=== PATIENT | male | born 1985 | race Caucasian/White ===

== ENCOUNTER 2017-11-06 21:48 | Emergency (ER) | payer MEDICAID ==
[~2017-11-06] VITALS: Ht 167.6 cm; Wt 70.3 kg
[2017-11-06 22:00] VITALS: Ht 167.6 cm; Wt 70.3 kg
[2017-11-06 22:33] VITALS: BP 120/71
== END 2017-11-06 22:34 | disposition home or self-care (01) ==
LOC: ED 21:48
DX: H73.012 Bullous myringitis, left ear (principal)

== ENCOUNTER 2019-08-22 17:59 | Emergency (ER) | payer MEDICAID ==
[~2019-08-22] VITALS: Ht 167.6 cm; Wt 67.6 kg
[2019-08-22 19:25] VITALS: Ht 167.6 cm; Wt 67.6 kg
[2019-08-22 21:16] VITALS: BP 123/69
== END 2019-08-22 21:16 | disposition home or self-care (01) ==
LOC: ED 17:59
DX: M54.41 Lumbago with sciatica, right side (principal)
CPT/HCPCS: J1885